=== PATIENT | female | born 1980 | race Caucasian/White ===

== ENCOUNTER → 2023-09-16 | Outpatient (CLI) | payer BC | LOC: M WHC 16:44 | PROVIDERS: ATTEND Registered Nurse | DX: Z12.31 Encounter for screening mammogram for malignant neoplasm of breast (principal) ==

== ENCOUNTER → 2023-10-20 | Outpatient (CLI) | payer BC | LOC: M WHC 13:35 | PROVIDERS: ATTEND Registered Nurse | DX: R92.8 Other abnormal and inconclusive findings on diagnostic imaging of breast (principal); R19.03 Right lower quadrant abdominal swelling, mass and lump | CPT/HCPCS: 76641; 77065; G0279 ==

== ENCOUNTER → 2024-11-01 | Outpatient (CLI) | payer BC | LOC: M WHC 12:52 | PROVIDERS: ATTEND Obstetrics & Gynecology | DX: Z12.31 Encounter for screening mammogram for malignant neoplasm of breast (principal) ==